=== PATIENT | female | born 1955 | race Caucasian/White ===

== ENCOUNTER → 2017-02-26 11:22 | Outpatient (CLI) | payer MEDICARE, MEDICAID ==
[2017-02-26 11:45] LABS: HEMATOCRIT 38.4 % (36.0-48.0); HEMOGLOBIN 12.8 g/dL (12-16); MCH 28.3 pg (26.0-34.0); MCHC 33.3 g/dL (31.0-37.0); MCV 84.8 fL (80.0-100.0); MEAN PLATELET VOLUME 11.3 fL (7.4-10.4); RBC 4.53 10x6/uL (4.00-5.40); RDW 15.1 % (11.5-14.5); WBC 7.7 10x3/uL (4.8-10.8)
[2017-02-26 11:58] LABS: ANION GAP 10.6 mmol/L (8-16); BILIRUBIN - TOTAL 0.28 mg/dL (0.2-1.3); CALCIUM 8.5 mg/dL (8.5-10.1); CARBON DIOXIDE 29.8 mmol/L (21.0-32.0); CREATININE - SERUM 1.6 mg/dL (0.6-1.3); POTASSIUM - SERUM 4.4 mmol/L (3.5-5.1); PROTEIN - SERUM 7.4 g/dL (6.4-8.2)
== END | disposition home or self-care (01) ==
LOC: D.LAB 11:22 → D.US 12:00
PROVIDERS: Internal Medicine Cardiovascular Disease
DX: M79.604 Pain in right leg (principal); R60.0 Localized edema

== ENCOUNTER → 2019-10-09 08:23 | Outpatient (CLI) | payer MEDICARE, MEDICAID ==
[2019-10-09 09:05] LABS: BASOPHILS 0.4 % (0-2); EOSINOPHILS 2.3 % (0-7); HEMOGLOBIN 11.6 g/dL (12-16); IMMATURE GRANULOCYTES 0.4 % (0-5); LYMPHOCYTES 19.4 % (15-50); MCH 28.9 pg (26.0-34.0); MCHC 31.4 g/dL (31.0-37.0); MCV 92.3 fL (80.0-100.0); MONOCYTES 9.2 % (2-11); NEUTROPHILS 68.3 % (40-80); PLATELET COUNT 207 10x3/uL (130-400); RBC 4.01 10x6/uL (4.00-5.40); RDW 16.9 % (11.5-14.5); WBC 5.3 10x3/uL (4.8-10.8)
[2019-10-10 10:08] LABS: ANA REFLEX - ANTICHROMATIN ABS <0.2 AI (0.0-0.9); ANA REFLEX - CENTROMERE B ABS <0.2 AI (0.0-0.9); ANA REFLEX - DBL STRANDED DNA 4 IU/mL (0-9); ANA REFLEX - DIRECT Positive (Negative); ANA REFLEX - JO-1 AB <0.2 AI (0.0-0.9); ANA REFLEX - RNP ANTIBODIES <0.2 AI (0.0-0.9); ANA REFLEX - SCL-70 5.8 AI (0.0-0.9); ANA REFLEX - SJOGRENS AB SSA <0.2 AI (0.0-0.9); ANA REFLEX - SJOGRENS AB SSB <0.2 AI (0.0-0.9); ANA REFLEX - SMITH AB <0.2 AI (0.0-0.9)
[2019-10-12 03:06] LABS: IMMUNOGLOBULIN E 3 IU/mL (6-495)
== END | disposition home or self-care (01) ==
LOC: D.RT 08:23
PROVIDERS: ATTEND Internal Medicine Pulmonary Disease
DX: J45.909 Unspecified asthma, uncomplicated (principal); R60.0 Localized edema; M19.90 Unspecified osteoarthritis, unspecified site

== ENCOUNTER → 2019-11-05 08:16 | Outpatient (CLI) | payer MEDICARE, MEDICAID ==
[2019-11-05 08:53] LABS: CREATININE - SERUM 1.3 mg/dL (0.6-1.3)
== END | disposition home or self-care (01) ==
LOC: D.US 08:16
PROVIDERS: ATTEND Internal Medicine Pulmonary Disease
DX: J45.909 Unspecified asthma, uncomplicated (principal); R60.0 Localized edema

== ENCOUNTER → 2019-11-20 13:01 | Outpatient (CLI) | payer MEDICARE, MEDICAID | END | disposition home or self-care (01) | LOC: D.RT 13:01 | PROVIDERS: ATTEND Internal Medicine Pulmonary Disease | DX: J45.909 Unspecified asthma, uncomplicated (principal) ==

== ENCOUNTER → 2020-03-26 13:09 | Outpatient (CLI) | payer MEDICARE, MEDICAID | END | disposition home or self-care (01) | LOC: D.CT 13:09 | PROVIDERS: ATTEND Internal Medicine Pulmonary Disease | DX: R06.00 Dyspnea, unspecified (principal) ==

== ENCOUNTER 2020-04-23 19:03 | Inpatient (IN) | payer MEDICARE, MEDICAID ==
[~2020-04-23] VITALS: Ht 160 cm; Wt 139.8 kg
--- NOTE | ~2020-04-23 | EC ---
PATIENT:YESENIA SEGURA DATE OF SERVICE: 04/23/20 SEX: F MEDICAL RECORD: [id number] DATE OF : 57 LOCATION:[facility] AGE OF PATIENT: 64 ADMISSION DATE: 04/23/20 REFERRING PHYSICIAN: INTERPRETING PHYSICIAN: NII DA SILVA MD ECHOCARDIOGRAM REPORT ECHO CHARGES 4 ECHO COMPLETE Date: 04/24/20 CLINICAL DIAGNOSIS: DYSPNEA ECHOCARDIOGRAPHIC MEASUREMENTS (adult normal given) AC root (d.<3.7cm) 2.8 cm LV Septum d (<1.2 cm> 1.2 cm Valve Excursion 1.4 cm LV Septum (systole) 1.7 cm Left Atria (s.<4.0cm> 3.8 cm LVPW d(<1.2cm) 1.2 cm RV (d.<2.3cm) 4.4 cm LVPW (sytole) 1.4 cm LV diastole(<5.6CM) 4.8 cm MV E-F(>70mm/sec) cm LV systole 3.4 cm LVOT Diameter 1.8 cm MV exc.(>10mm) cm Est.ejection fraction (50-75%) 55 % DOPPLER: LVIT cm/sec A 1.2 cm/sec E 1.3 cm/sec LA cm/sec RVSP 56 mmHg LVOT 167 cm/sec AOP1/2T m/s Asc. Ao 237 cm/sec RVOT cm/sec RA cm/sec PA cm/sec AV Gradient Peak 22 mmHg AV Mean 11 mmHg AV Area 1.9 cm MV Gradient Peak mmHg MV Mean mmHg MV Area cm COMMENTS: Bark Skinner: 3 GUS MOSHER Downstream Biomanufacturing Technician: 5 Dr. Da Silva TAPE# Pericardial Effusion DATE OF SERVICE: CLINICAL DIAGNOSIS: Dyspnea. INTERPRETATION: Normal left ventricular chamber size and contractile function with ejection fraction of 50% to 55%. Left atrial chamber appears normal. Right atrial and right ventricular chambers are not well visualized, but appear normal. Aortic valve, mild thickening, otherwise normal. No aortic stenosis/regurgitation. Mitral valve appears normal. No regurgitation/stenosis. Tricuspid valve not well visualized. Trivial tricuspid ECHOCARDIOGRAM REPORT [id number] YESENIA SEGURA regurgitation. Pulmonic valve not visualized. No pericardial effusion visualized. IMPRESSION: Technically difficult study. Overall, normal left ventricular chamber size and contractile function with ejection fraction of 55% to 60%. TRANSINT:[id number] Voice Confirmation ID: [id number] DOCUMENT ID: [id number] NII DA SILVA MD CC: [id number] DICTATION DATE: 04/25/20 1244 AZURE DEVELOPER: 04/25/20 1524 ADM IN [facility] [address] [place] [address]
[2020-04-23] MEDS ORDERED: COREG 3.1253.125 MG PO (19:18)
[2020-04-23] MEDS ORDERED: PIOGLITAZONE15 MG PO (19:19)
[2020-04-23] MEDS ORDERED: ZYLOPRIM100 MG PO (19:19)
[2020-04-23] MEDS ORDERED: COZAAR100 MG PO (19:19)
[2020-04-23] MEDS ORDERED: NORVASC10 MG PO (19:19)
[2020-04-23] MEDS ORDERED: LASIX80 MG (19:19)
[2020-04-23] MEDS ORDERED: GLIPIZIDE10 MG PO (19:20)
[2020-04-23] MEDS ORDERED: HYDROCODON-ACE1 EAC7 PO (19:20)
[2020-04-23 20:38] LABS: BASOPHILS 0.3 % (0-2); EOSINOPHILS 1.7 % (0-7); HEMATOCRIT 33.6 % (36.0-48.0); HEMOGLOBIN 10.3 g/dL (12-16); IMMATURE GRANULOCYTES 0.3 % (0-5); LYMPHOCYTES 11.2 % (15-50); MCH 28.8 pg (26.0-34.0); MCHC 30.7 g/dL (31.0-37.0); MCV 93.9 fL (80.0-100.0); MEAN PLATELET VOLUME 12.4 fL (7.4-10.4); MONOCYTES 11.2 % (2-11); NEUTROPHILS 75.3 % (40-80); PLATELET COUNT 206 10x3/uL (130-400); RBC 3.58 10x6/uL (4.00-5.40); RDW 15.5 % (11.5-14.5); WBC 6.1 10x3/uL (4.8-10.8)
[2020-04-23 20:50] LABS: ANION GAP 7.4 mmol/L (8-16); CARBON DIOXIDE 28.6 mmol/L (21.0-32.0); CREATININE - SERUM 1.7 mg/dL (0.6-1.3)
[2020-04-23 21:06] LABS: ALBUMIN 3.1 g/dL (3.4-5.0); BILIRUBIN - TOTAL 0.38 mg/dL (0.2-1.3); MAGNESIUM - SERUM 1.9 mg/dL (1.8-2.4); PROTEIN - SERUM 7.1 g/dL (6.4-8.2); THYROID STIMULATING HORMONE 5.77 uIU/mL (0.36-3.74); TROPONIN-I 0.039 ng/mL (0.000-0.060)
[2020-04-23 21:08] LABS: BILIRUBIN NEGATIVE (NEGATIVE); KETONE NEGATIVE (NEGATIVE); NITRITE NEGATIVE (NEGATIVE); UROBILINOGEN NORMAL mg/dL (< 2)
[2020-04-23 21:14] LABS: AMORPHOUS SEDIMENT MODERATE LPF (NONE SEEN); BACTERIA FEW HPF (NONE SEEN); EPITHELIAL CELLS NSEEN /hpf (0-5); WHITE CELLS - URINE 0-5 HPF (0-4)
[2020-04-23 22:00] VITALS: BP 169/80
[2020-04-23 23:00] VITALS: BP 164/74
[2020-04-24] VITALS (7 sets, daily range): BP systolic 107–172; BP diastolic 50–76; Ht 160 cm; Wt 139.8 kg
--- NOTE | 2020-04-24 06:41 | NUR ---
COVID SWAB TAKEN TO LAB
--- NOTE | 2020-04-24 06:55 | NUR ---
PT REPORT FROM ALEX SCHWARZ AT THIS TIME
--- NOTE | 2020-04-24 07:20 | NUR ---
PT AAOX4, PT IS OBESE PT, WITH RESP DISTRESS. RESP SHALLOW, WITH LUNGS CLEAR IN THE UPPER LOBES AND DIMINISHED IN RML, AND BILAT. BASES. PT HAS PROTURBURANT ABD WITH BS X 4, PT HAS EDEMA NOTED FROM ABD DOWN BILAT LOWER EXT. HEART RRR, NO MURMURS. PT HAS 4+ PITTING EDEMA NOTED TO BILT LOWER EXT.
[2020-04-24 07:28] LABS: BASOPHILS 0.1 % (0-2); EOSINOPHILS 1.6 % (0-7); HEMATOCRIT 31.4 % (36.0-48.0); HEMOGLOBIN 9.8 g/dL (12-16); IMMATURE GRANULOCYTES 0.4 % (0-5); LYMPHOCYTES 12.4 % (15-50); MCH 28.9 pg (26.0-34.0); MCHC 31.2 g/dL (31.0-37.0); MCV 92.6 fL (80.0-100.0); MEAN PLATELET VOLUME 12.7 fL (7.4-10.4); MONOCYTES 11.7 % (2-11); NEUTROPHILS 73.8 % (40-80); RBC 3.39 10x6/uL (4.00-5.40); RDW 15.4 % (11.5-14.5); WBC 6.8 10x3/uL (4.8-10.8)
[2020-04-24 07:29] LABS: PLATELET COUNT 164 10x3/uL (130-400)
[2020-04-24 08:03] LABS: ANION GAP 9.9 mmol/L (8-16); CALCIUM 8.8 mg/dL (8.5-10.1); CARBON DIOXIDE 26.8 mmol/L (21.0-32.0); CREATININE - SERUM 1.7 mg/dL (0.6-1.3); POTASSIUM - SERUM 4.7 mmol/L (3.5-5.1)
[2020-04-24 08:07] LABS: % SATURATION 28 % (15-55); IRON 87 ug/dl (35-150); TOTAL IRON BIND CAPACITY 306 ug/dl (260-445); UNSAT IRON BIND CAPACITY 219 ug/dl (150-375)
[2020-04-24 08:48] LABS: APTT 30.4 SECONDS (22.8-39.4)
[2020-04-24 08:49] LABS: D-DIMER-QUANTITATIVE 1.95 ug/mLFEU (0.20-0.54); INR 1.11 (0.85-1.17); PROTIME 14.2 SECONDS (11.6-15.0)
--- NOTE | 2020-04-24 10:40 | NUR ---
BUMEX DRIP STOPPED PER DR. MARISOL WATERS
--- NOTE | 2020-04-24 15:00 | NUR ---
ALERT AND ORIENTED X4. O2 3L N/C. LUNGS DIMINISHED TO BLQ ANTERIOR. MURMOR NOTED TO SECOND RIGHT ICS. DENIES ANY CHEST PAIN OR DISCOMFORT WITH NO NECK VEIN DISTENTION. ERRYTHEMA NOTED TO BLE WITH PEDAL PULSES NOTED AND NEG HOMEN SIGN. ENCOURAGED TO USE CALL LIGHT FOR ASSSIT.
--- NOTE | 2020-04-24 19:18 | NUR ---
RECEIVED REPORT, ASSUMED CARE, A&OX4, DENIES NEEDS, BED LOWEST POSITION, CALL LIGHT IN REACH, IV PATENT TO LH PATENT, DURON TO GRAVITY
[2020-04-25] VITALS: BP 123/57
--- NOTE | 2020-04-25 03:00 | NUR ---
I have reviewed this patient and I concur with the Shift Assessment completed by the Licensed Practical Nurse today this shift.
[2020-04-25 04:00] VITALS: BP 158/60
[2020-04-25 06:50] LABS: BASOPHILS 0.2 % (0-2); EOSINOPHILS 2.7 % (0-7); HEMATOCRIT 31.4 % (36.0-48.0); HEMOGLOBIN 9.7 g/dL (12-16); IMMATURE GRANULOCYTES 0.2 % (0-5); LYMPHOCYTES 18.2 % (15-50); MCH 28.5 pg (26.0-34.0); MCHC 30.9 g/dL (31.0-37.0); MCV 92.4 fL (80.0-100.0); MEAN PLATELET VOLUME 12.7 fL (7.4-10.4); MONOCYTES 13.6 % (2-11); NEUTROPHILS 65.1 % (40-80); RDW 15.5 % (11.5-14.5); WBC 5.5 10x3/uL (4.8-10.8)
[2020-04-25 07:11] LABS: ALBUMIN 2.5 g/dL (3.4-5.0); ANION GAP 11.3 mmol/L (8-16); BILIRUBIN - TOTAL 0.39 mg/dL (0.2-1.3); CALCIUM 8.5 mg/dL (8.5-10.1); CARBON DIOXIDE 26.2 mmol/L (21.0-32.0); CREATININE - SERUM 1.8 mg/dL (0.6-1.3); MAGNESIUM - SERUM 1.6 mg/dL (1.8-2.4); POTASSIUM - SERUM 4.5 mmol/L (3.5-5.1); PROTEIN - SERUM 6.2 g/dL (6.4-8.2)
[2020-04-25 07:15] LABS: PLATELET COUNT 211 10x3/uL (130-400)
[2020-04-25 07:38] LABS: BILIRUBIN NEGATIVE (NEGATIVE); KETONE NEGATIVE (NEGATIVE); NITRITE NEGATIVE (NEGATIVE); UROBILINOGEN NORMAL mg/dL (< 2)
[2020-04-25 07:39] LABS: BACTERIA FEW HPF (NONE SEEN); EPITHELIAL CELLS 0-5 /hpf (0-5); WHITE CELLS - URINE 0-5 HPF (0-4)
--- NOTE | 2020-04-25 07:58 | NUR ---
RESTING IN BED, NO DISTRESS NOTED, IV INFUSING, AWAITING CARDIOLOGY CONSULT FOR SURGERY
--- NOTE | 2020-04-25 08:01 | NUR ---
RESTING IN BED, IN ROOM, NO DISTRESS NOTED, O2 PER NC, CONT TO MONITOR SUGARS
[2020-04-25 08:16] VITALS: BP 146/59
[2020-04-25 12:36] VITALS: BP 152/59
[2020-04-25 16:43] VITALS: BP 159/57
[2020-04-25 20:00] VITALS: BP 157/57
[2020-04-26] VITALS: BP 153/63
--- NOTE | 2020-04-26 03:06 | NUR ---
I have reviewed this patient and I concur with the Shift Assessment completed by the Licensed Practical Nurse today this shift.
[2020-04-26 04:00] VITALS: BP 144/61
[2020-04-26 04:59] LABS: BASOPHILS 0.5 % (0-2); EOSINOPHILS 3.8 % (0-7); HEMATOCRIT 31.3 % (36.0-48.0); HEMOGLOBIN 9.6 g/dL (12-16); IMMATURE GRANULOCYTES 0.2 % (0-5); LYMPHOCYTES 21.4 % (15-50); MCH 28.4 pg (26.0-34.0); MCHC 30.7 g/dL (31.0-37.0); MCV 92.6 fL (80.0-100.0); MEAN PLATELET VOLUME 11.7 fL (7.4-10.4); MONOCYTES 11.5 % (2-11); NEUTROPHILS 62.6 % (40-80); PLATELET COUNT 206 10x3/uL (130-400); RBC 3.38 10x6/uL (4.00-5.40); RDW 15.4 % (11.5-14.5); WBC 5.9 10x3/uL (4.8-10.8)
[2020-04-26 05:11] LABS: ALBUMIN 2.4 g/dL (3.4-5.0); BILIRUBIN - TOTAL 0.3 mg/dL (0.2-1.3); CALCIUM 8.5 mg/dL (8.5-10.1); CARBON DIOXIDE 30.4 mmol/L (21.0-32.0); CREATININE - SERUM 1.8 mg/dL (0.6-1.3); MAGNESIUM - SERUM 1.6 mg/dL (1.8-2.4); POTASSIUM - SERUM 4.4 mmol/L (3.5-5.1)
--- NOTE | 2020-04-26 06:45 | NUR ---
A&O RESTING IN BED WITH EYE OPEN. NO C/O PAIN. NO S/S OF ACUTE DISTRESS NOTED. GENERALIZED EDEMA. DURON CATHETER PRESENT. ON 3L O2, NC. LUNG SOUNDS DIMINISHED ALL LOBES. IV TO LEFT HAND, SL. SITE PATENT WITHOUT REDNESS OR SWELLING. MAGNESIUM 1.6 THIS AM, WILL FOLLOW ELECTROLYTE PROTOCOL. DENIES ANY NEEDS AT THIS TIME. CALL LIGHT IN REACH. WILL CONTINUE TO MONITOR.
[2020-04-26 08:44] VITALS: BP 144/63
--- NOTE | 2020-04-26 10:55 | NUR ---
I have reviewed this patient and I concur with the Shift Assessment completed by the Licensed Practical Nurse today this shift.
[2020-04-26 12:41] VITALS: BP 150/60
[2020-04-26 16:21] VITALS: BP 162/62
--- NOTE | 2020-04-26 16:25 | MORECARE ---
CASE MANAGEMENT DISCHARGE SUMMARY PATIENT: YESENIA SEGURA UNIT: [id number] ADM DATE: 04/23/20 AGE: 64 : 57 SEX: F ROOM/BED: D.2215 AUTHOR: VERONICA SAUL PHYSICIAN: REFERRING PHYSICIAN: KAYLEY DAMON MD DATE OF SERVICE: 04/26/20 Discharge Plan Patient Name: YESENIA SEGURA [facility] [facility] 1955 Planned Disposition: Anticipated Discharge Date: Discharge Date: Expected LOS: Initial Reviewer: [email or web address] Initial Review Date: 04/24/2020 Generated: 04/26/20 5:24 pm DCPIA - Discharge Planning Initial Assessment Updated by [email or web address]: Ila Roberts on 04/26/20 4:22 pm * Is the patient Alert and Oriented? Yes * PCP [facility] * Pharmacy [facility] [place] * Preadmission Environment Home with Family * ADLs Independent * Other Equipment 02, PORTABLE, CANE, WALKER, SCOOTER/ WITH LINCARE * Community resources currently utilized None * Additional services required to return to the preadmission environment? No * Can the patient safely return to the preadmission environment? Yes * Has this patient been hospitalized within the prior 30 days at any hospital? No Patient Name: YESENIA SEGURA Page [id number] at 1625 All edits/amendments must be made on the electronic document DICTATION DATE: 04/26/201623 COPY CAMERA OPERATOR: DELMY 04/26/201623 RPT#: [id number] DC DATE: STATUS: ADM IN [facility] [address] [place] [address] END OF REPORT
--- NOTE | 2020-04-26 16:33 | MORECARE ---
CASE MANAGEMENT DISCHARGE SUMMARY PATIENT: YESENIA SEGURA UNIT: [id number] ADM DATE: 04/23/20 AGE: 64 : 56 SEX: F ROOM/BED: D.2215 AUTHOR: VERONICA SAUL PHYSICIAN: REFERRING PHYSICIAN: KAYLEY DAMON MD DATE OF SERVICE: 04/26/20 Discharge Plan Patient Name: YESENIA SEGURA Facility: [facility]:[place] : 1955 Planned Disposition: Anticipated Discharge Date: Discharge Date: Expected LOS: Initial Reviewer: [email or web address] Initial Review Date: 04/24/2020 Generated: 04/26/20 5:32 pm Comments DCP- Discharge Planning Updated by [email or web address]: Ila Roberts on 04/26/20 3:[address] Patient Name: YESENIA SEGURA Admission Status: ER Accout number: [id number] Admission Date: 04-23-2020 : 1955 Admission Diagnosis: Attending: RYAN Current LOS: 3 Anticipated DC Date: Planned Disposition: Primary Insurance: [facility] [employer] Discharge Planning Comments: CM met with patient at bedside after explaining CM role and obtaining verbal consent. CM discussed availability / needs of home health, REHAB and medical equipment. PATIENT HAS 02 WITH [facility]. DISCUSSED HOME HEALTH BUT SHE DOES NOT WANT HH. IMM SIGNED. [facility] DOCTOR SAID SHE MAY DC IN THE MORNING. CM TO FOLLOW AND ASSIST NEEDED. Paving Crew Foreman: Ila Roberts DCPIA - Discharge Planning Initial Assessment Updated by [email or web address]: Ila Roberts on 04/26/20 4:22 pm * Is the patient Alert and Oriented? Yes * PCP [facility] * Pharmacy [facility] IN [place] * Preadmission Environment Home with Family * ADLs Independent * Other Equipment 02, PORTABLE, CANE, WALKER, SCOOTER/ WITH LINCARE * Community resources currently utilized None * Additional services required to return to the preadmission environment? No * Can the patient safely return to the preadmission environment? Yes * Has this patient been hospitalized within the prior 30 days at any hospital? No Last DP export: 04/26/20 3:25 Patient Name: YESENIA SEGURA Page [id number] at 1633 All edits/amendments must be made on the electronic document DICTATION DATE: 04/26/201631 PLUNGER MACHINE OPERATOR: DELMY 04/26/201631 RPT#: [id number] DC DATE: STATUS: ADM IN [facility] [address] [place] [address] END OF REPORT
--- NOTE | 2020-04-26 18:16 | NUR ---
A&O RESTING IN BED WITH EYES OPEN. SPOUSE AT BEDSIDE. NO C/O PAIN. NO S/S OF ACUTE DISTRESS NOTED. DENIES ANY NEEDS AT THIS TIME. CALL LIGHT IN REACH. WILL CONTINUE TO MONITOR.
[2020-04-26 20:00] VITALS: BP 142/57
--- NOTE | 2020-04-26 22:00 | NUR ---
REPORTS BURNING AT IV SITE. NO REDNESS OR SWELLING NOTED. FLUSHES WITH EASE, ABX INFUSION TURNED DOWN TO 100ML/HR. CTM.
[2020-04-27] VITALS: BP 138/61
--- NOTE | 2020-04-27 02:05 | NUR ---
I have reviewed this patient and I concur with the Shift Assessment completed by the Licensed Practical Nurse today this shift.
[2020-04-27 04:00] VITALS: BP 156/70
[2020-04-27 05:19] LABS: BASOPHILS 0.3 % (0-2); EOSINOPHILS 2.8 % (0-7); HEMATOCRIT 32.1 % (36.0-48.0); HEMOGLOBIN 9.9 g/dL (12-16); IMMATURE GRANULOCYTES 0.5 % (0-5); LYMPHOCYTES 23.1 % (15-50); MCH 28.7 pg (26.0-34.0); MCHC 30.8 g/dL (31.0-37.0); MEAN PLATELET VOLUME 12.9 fL (7.4-10.4); MONOCYTES 10.2 % (2-11); NEUTROPHILS 63.1 % (40-80); PLATELET COUNT 230 10x3/uL (130-400); RBC 3.45 10x6/uL (4.00-5.40); RDW 15.5 % (11.5-14.5); WBC 6.4 10x3/uL (4.8-10.8)
[2020-04-27 05:21] LABS: ALBUMIN 2.4 g/dL (3.4-5.0); ANION GAP 7.6 mmol/L (8-16); BILIRUBIN - TOTAL 0.41 mg/dL (0.2-1.3); CALCIUM 8.6 mg/dL (8.5-10.1); CARBON DIOXIDE 32.5 mmol/L (21.0-32.0); MAGNESIUM - SERUM 1.4 mg/dL (1.8-2.4); POTASSIUM - SERUM 4.1 mmol/L (3.5-5.1); PROTEIN - SERUM 6.2 g/dL (6.4-8.2)
--- NOTE | 2020-04-27 07:42 | NUR ---
0700 BEDSIDE REPORT RECEIVED AAO X 3
--- NOTE | 2020-04-27 07:43 | NUR ---
3736 DR SHEN, RENAL MD AT BEDSIDE
[2020-04-27 08:22] VITALS: BP 156/63
[2020-04-27] MEDS ORDERED: COREG 3.1253.125 MG PO (10:16)
[2020-04-27] MEDS ORDERED: ZITHROMAX250 MG PO (10:16)
[2020-04-27] MEDS ORDERED: OMNICEF300 MG PO (10:16)
[2020-04-27] MEDS ORDERED: SYNTHROID25 MCG PO (10:17)
[2020-04-27] MEDS ORDERED: SINGULAIR10 MG PO (10:17)
[2020-04-27] MEDS ORDERED: FLORAJEN3 CAPS460 MG PO (10:17)
[2020-04-27] MEDS ORDERED: PROTONIX40 MG PO (10:17)
[2020-04-27] MEDS ORDERED: GLUCOTROL XL 1010 MG PO (10:17)
[2020-04-27] MEDS ORDERED: PULMICORT0.5 MG/21 UPD (10:18)
[2020-04-27] MEDS ORDERED: IPRAT-ALBUT 0.5-3 ML UPD (10:20)
[2020-04-27] MEDS ORDERED: TORSEMIDE20 MG PO (11:03)
[2020-04-27 12:46] VITALS: BP 122/58; BP 145/68
[2020-04-27 13:11] LABS: CREATININE - URINE 67.7 mg/dL (Not Estab.); MICROALBUMIN - URINE 1596.1 ug/mL (Not Estab.)
--- NOTE | 2020-04-27 13:17 | NUR ---
1200 DISCHARGE ORDERS NOTED WRITTEN AND VERBAL DISCHARGE INSTRUCTIONS GIVEN BOTH PT AND FAMILY VERBALIZED UNDERSTANDING OLIVERIO DISCONTINUED LEFT HAND SL REMOVED PT WAITING FOR LUNCH BEFORE SHE LEAVES
--- NOTE | 2020-04-27 13:49 | NUR ---
9374 TRANSPORTED VIA WHEELCHAIR TO [facility] TAKING HER HOME
--- NOTE | 2020-04-28 09:10 | MORECARE ---
CASE MANAGEMENT DISCHARGE SUMMARY PATIENT: YESENIA SEGURA UNIT: [id number] ADM DATE: 04/23/20 AGE: 64 : 57 SEX: F ROOM/BED: D.6695 AUTHOR: KG,DOC PHYSICIAN: REFERRING PHYSICIAN: KAYLEY DAMON MD DATE OF SERVICE: 04/28/20 Discharge Plan Patient Name: YESENIA SEGURA Facility: [facility]:[place] : 1955 Planned Disposition: Anticipated Discharge Date: Discharge Date: 04/27/2020 Expected LOS: Initial Reviewer: [email or web address] Initial Review Date: 04/24/2020 Generated: 04/28/20 10:09 am Comments DCP- Discharge Planning Updated by [email or web address]: Ila Roberts on 04/26/20 3:[address] Patient Name: YESENIA SEGURA Admission Status: ER Accout number: [id number] Admission Date: 04-23-2020 : 1955 Admission Diagnosis: Attending: RYAN Current LOS: 3 Anticipated DC Date: Planned Disposition: Primary Insurance: [facility] MEDIC[employer] SOLUTIONS Discharge Planning Comments: CM met with patient at bedside after explaining CM role and obtaining verbal consent. CM discussed availability / needs of home health, REHAB and medical equipment. PATIENT STATES HAS 02 WITH [facility] [place]. DISCUSSED HOME HEALTH BUT SHE DOES NOT WANT HH. IMM SIGNED. [facility] DOCTOR SAID SHE MAY DC IN THE MORNING. CM TO FOLLOW AND ASSIST NEEDED. Primary Special Educator: Ila Roberts DCPIA - Discharge Planning Initial Assessment Updated by [email or web address]: Ila Roberts on 04/26/20 4:22 pm * Is the patient Alert and Oriented? Yes * PCP [facility] * Pharmacy [facility] [place] * Preadmission Environment Home with Family * ADLs Independent * Other Equipment 02, PORTABLE, CANE, WALKER, SCOOTER/ WITH LINCARE * Community resources currently utilized None * Additional services required to return to the preadmission environment? No * Can the patient safely return to the preadmission environment? Yes * Has this patient been hospitalized within the prior 30 days at any hospital? No Coverage Notice Reviewer: [id number] - Ila Roberts Notice Issued Date-Time: 04/26/2020 10:17 Notice Type: IM Discharge Notice Notice Delivered To: Patient Relationship to Patient: [employer] Name: Delivery Method: HAND - Hand Delivered Gabbie Days: Prior Verbal Notification: Recipient Understood Notice: Yes Recipient Signature: Yes Med Rec Note Co-signed by Attending: Coverage Notice Comment: Last DP export: 04/26/20 3:33 Patient Name: YESENIA SEGURA Page [phone] at 0910 All edits/amendments must be made on the electronic document DICTATION DATE: 04/28/20909 SALES FINANCIAL ANALYST: DELMY 04/28/20909 RPT#: [id number] DC DATE:04/27/20 STATUS: DIS IN [facility] [address] [place] [address] END OF REPORT
== END 2020-04-27 13:35 | disposition home or self-care (01) | DRG 291 ==
LOC: D.ER 19:03 → D.MS 21:14 → D.EDHOLD 21:14 → D.MS 04-24 13:13
PROVIDERS: Emergency Medicine; Internal Medicine Nephrology; ADMIT Family Medicine; ATTEND Family Medicine
DX: I13.0 Hypertensive heart and chronic kidney disease with heart failure and stage 1 through stage 4 chronic kidney disease, or unspecified chronic kidney disease (principal); J18.9 Pneumonia, unspecified organism; I50.33 Acute on chronic diastolic (congestive) heart failure; J96.11 Chronic respiratory failure with hypoxia; N17.9 Acute kidney failure, unspecified; R60.1 Generalized edema; D64.9 Anemia, unspecified; E11.65 Type 2 diabetes mellitus with hyperglycemia; E03.9 Hypothyroidism, unspecified; E11.42 Type 2 diabetes mellitus with diabetic polyneuropathy; E11.22 Type 2 diabetes mellitus with diabetic chronic kidney disease; J45.909 Unspecified asthma, uncomplicated; M19.90 Unspecified osteoarthritis, unspecified site; G89.29 Other chronic pain; N18.32 Chronic kidney disease, stage 3b; Z99.81 Dependence on supplemental oxygen; J44.9 Chronic obstructive pulmonary disease, unspecified